=== PATIENT | male | born 1975 | race Native Hawaiian/Other Pacific Islander ===

== ENCOUNTER 2019-10-16 13:08 | Outpatient (CLI) | payer BC, OTHER | END 2019-10-16 23:30 | disposition home or self-care (01) | LOC: LAB 13:08 | DX: R53.83 Other fatigue (principal); R19.7 Diarrhea, unspecified; R11.0 Nausea | CPT/HCPCS: 87635; G2023; U0002 ==

== ENCOUNTER 2020-11-28 08:52 | Outpatient (CLI) | payer BC, OTHER | END 2020-11-28 21:00 | disposition home or self-care (01) | LOC: LAB 08:52 | PROVIDERS: ATTEND Internal Medicine | DX: R09.81 Nasal congestion (principal); R05 Cough | CPT/HCPCS: 87635; G2023; U0003 ==

== ENCOUNTER 2021-12-24 08:59 | Outpatient (CLI) | payer BC | END 2021-12-24 19:58 | disposition home or self-care (01) | LOC: RESP 08:59 | PROVIDERS: ATTEND Nurse Practitioner Family | DX: R07.89 Other chest pain (principal) ==

== ENCOUNTER 2022-11-19 08:51 | Outpatient (CLI) | payer BC | END 2022-11-19 19:20 | disposition home or self-care (01) | LOC: RESP 08:51 | PROVIDERS: ATTEND Nurse Practitioner Family | DX: R07.89 Other chest pain (principal); E78.49 Other hyperlipidemia; R06.02 Shortness of breath ==

== ENCOUNTER 2022-12-10 08:31 | Outpatient (CLI) | payer OTHER | END 2022-12-10 20:35 | disposition home or self-care (01) | LOC: CT 08:31 | PROVIDERS: ATTEND Nurse Practitioner Family | DX: Z13.6 Encounter for screening for cardiovascular disorders (principal) ==

== ENCOUNTER 2022-12-10 08:32 | Outpatient (CLI) | payer BC | END 2022-12-10 20:35 | disposition home or self-care (01) | LOC: RAD 08:32 | PROVIDERS: ATTEND Nurse Practitioner Family | DX: R07.89 Other chest pain (principal); R06.02 Shortness of breath; R05.9 Cough, unspecified ==

== ENCOUNTER 2023-01-05 10:39 | Outpatient (CLI) | payer BC | END 2023-01-05 19:04 | disposition home or self-care (01) | LOC: RESP 10:39 | PROVIDERS: ATTEND Specialist | DX: R07.89 Other chest pain (principal); I10 Essential (primary) hypertension; E78.49 Other hyperlipidemia; R00.2 Palpitations ==